=== PATIENT | female | born 1990 ===

== ENCOUNTER 2018-02-26 12:21 | Inpatient (IN) | payer MEDICAID, OTHER ==
[2018-02-26] MEDS ORDERED: CLINDAMYCIN 600 MG/DEXTROSE 50 ML IV ONE (12:47)
[2018-02-26] MEDS ORDERED: CIPROFLOXACIN 400 MG/DEXTROSE 200 ML IV ONE (12:48)
[2018-02-26 13:10] LABS: PLATELET COUNT 289 10^3/uL (150-400)
--- NOTE | 2018-02-26 14:44 | EDPHY ---
H & P Stated Complaint: cat bite to right hand 630pm 4/5 at work , cat w vaccines Time Seen by Provider: 02/26/18 12:34 HPI/ROS: CHIEF COMPLAINT: Cat bite History by patient HISTORY OF PRESENT ILLNESS: 27-year-old otherwise healthy right-hand dominant woman presents complaining of cat bite to her right hand. Patient's states she was bit by her brother's CT last night and this morning she was at work and noticed she was having a hard time doing things because it was so painful and swollen. She says the pain goes up into her forearm to almost the area of her elbow. She denies any fever but she has been feeling generally tired and headachy today. There has been no pus draining from the wound. Her last tetanus shot is unknown. She denies any other injuries. REVIEW OF SYSTEMS: As in HPI, and all other systems reviewed and are negative Source: Patient - Personal History LMP (Females 10-55): IUD In Place Current Tetanus/Diphtheria Vaccine: Unsure Current Tetanus Diphtheria and Acellular Pertussis (TDAP): Unsure - Medical/Surgical History Hx Asthma: Yes Hx Chronic Respiratory Disease: No Hx Diabetes: No Hx Cardiac Disease: No Hx Renal Disease: Yes Hx Cirrhosis: No Hx Alcoholism: No Hx HIV/AIDS: No Hx Splenectomy or Spleen Trauma: No Other PMH: Asthma. had kidney issue few years pt 2018. migraines - Social History Smoking Status: Never smoked - Physical Exam Exam: General Appearance: Alert and no distress. Nontoxic Head: Normocephalic, atraumatic Eyes: Pupils equal and round no injection. Extraocular movements are intact. Musculoskeletal: Neck is supple and nontender. Extremities: Right hand positive bite smith on thenar eminence and dorsal surface of thumb and hand, multiple abrasions on right hand, for arm and left for arm. Positive redness and swelling of right thenar eminence with erythema extending up to 2 in proximal of the right wrist with warmth extending to the level of the proximal forearm with diffuse tenderness of the right forearm, radial pulses 2+ and equal to the left, distal motor and sensation are intact, distal cap refills less than 2 sec Skin: No rashes or lesions except as described above. Constitutional: Initial Vital Signs Temperature (C) 37.2 C 02/26/18 12:25 Heart Rate 84 02/26/18 12:25 Respiratory Rate 16 02/26/18 12:25 Blood Pressure 139/94 H 02/26/18 12:25 O2 Sat (%) 99 02/26/18 12:25 O2 Delivery Mode Room Air Allergies/Adverse Reactions: amoxicillin Allergy (Verified 02/26/18 12:35) Penicillins Allergy (Verified 02/26/18 12:35) Home Medications: Medication Instructions Recorded Albuterol 02/26/18 Iud 02/26/18 Medical Decision Making ED Course/Re-evaluation: 27-year-old woman presents with the 24 hr old cat bite with obvious hand infection and proximally migrating cellulitis. Patient is penicillin allergic and states that she had an anaphylactic reaction with throat closing and shock to penicillin. She was therefore started on IV ciprofloxacin and IV clindamycin. CBC ESR and CRP were within normal limits and there is no evidence of systemic sepsis, however given the spreading cellulitis from a cat bite it seemed prudent to admit the patient for 24 hr of IV antibiotics. The patient will not be able to travel by airplane to [facility] as previously planned because of the severity of her infection and the need for ongoing antibiotics and monitoring the infection. I did discuss the case with the hand specialist on-call, Dr. Khan. He will consult on the patient. I discussed the case with the hospitalist. - Data Points Laboratory Results: Laboratory Results 02/26/18 13:00 02/26/18 02/26/18 13:00 13:00 WBC 6.45 10^3/uL 10^3/uL (3.80-9.50) RBC 5.16 10^6/uL 10^6/uL (4.18-5.33) Hgb 15.7 g/dL g/dL (12.6-16.3) Hct 44.9 % % (38.0-47.0) MCV 87.0 fL fL (81.5-99.8) MCH 30.4 pg pg (27.9-34.1) MCHC 35.0 g/dL g/dL (32.4-36.7) RDW 11.9 % % (11.5-15.2) Plt Count 289 10^3/uL 10^3/uL (150-400) MPV 9.5 fL fL (8.7-11.7) Neut % (Auto) 72.7 % % (39.3-74.2) Lymph % (Auto) 19.1 % % (15.0-45.0) Tift % (Auto) 6.2 % % (4.5-13.0) Eos % (Auto) 1.4 % % (0.6-7.6) Baso % (Auto) 0.3 % % (0.3-1.7) Nucleat RBC Rel Count 0.0 % % (0.0-0.2) Absolute Neuts (auto) 4.69 10^3/uL 10^3/uL (1.70-6.50) Absolute Lymphs (auto) 1.23 10^3/uL 10^3/uL (1.00-3.00) Absolute Monos (auto) 0.40 10^3/uL 10^3/uL (0.30-0.80) Absolute Eos (auto) 0.09 10^3/uL 10^3/uL (0.03-0.40) Absolute Basos (auto) 0.02 10^3/uL 10^3/uL (0.02-0.10) Absolute Nucleated RBC 0.00 10^3/uL 10^3/uL (0-0.01) Immature Gran % 0.3 % % (0.0-1.1) Immature Gran # 0.02 10^3/uL 10^3/uL (0.00-0.10) ESR 7 MM/HR MM/HR (0-20) C-Reactive Protein < 5.0 mg/L mg/L (<10.0) Medications Given: Discontinued Medications Ciprofloxacin/Dextrose (Cipro 400 Mg (Premix)) 200 mls @ 200 mls/hr IV EDNOW ONE PRN Reason: Protocol Stop: 02/26/18 13:47 Last Admin: 02/26/18 13:24 Dose: 200 mls Clindamycin Phosphate/Dextrose (Cleocin 600 Mg (Premix)) 50 mls @ 100 mls/hr IV EDNOW ONE PRN Reason: Protocol Stop: 02/26/18 13:16 Last Admin: 02/26/18 14:35 Dose: 50 mls Departure - Departure Disposition: [facility] Clinical Impression: Cat bite of right hand with infection Qualifiers: Encounter type: initial encounter Qualified Code(s): S61.451A - Open bite of right hand, initial encounter Cellulitis Qualifiers: Site of cellulitis: extremity Site of cellulitis of extremity: upper extremity Laterality: right Qualified Code(s): L03.113 - Cellulitis of right upper limb Condition: Good
[2018-02-26] MEDS ORDERED: TDAP ADULT 0.5 ML INJ (BOOSTRIX) IM ONE (16:09)
[2018-02-26] MEDS ORDERED: IBUPROFEN 600 MG TAB PO ONE (16:18)
[2018-02-26] MEDS ORDERED: ONDANSETRON DISINTEGRATING 4 MG TAB PO PRN (17:20)
[2018-02-26] MEDS ORDERED: ACETAMINOPHEN 325 MG TAB PO PRN (17:20)
[2018-02-26] MEDS ORDERED: ONDANSETRON 4 MG/2 ML VIAL IVP PRN (17:20)
[2018-02-26] MEDS ORDERED: IBUPROFEN 200 MG TAB PO PRN (17:20)
--- NOTE | 2018-02-26 19:03 | GHP ---
[f rep st] HISTORY AND PHYSICAL DATE OF ADMISSION: 02/26/2018 CHIEF COMPLAINT: Hand pain. HISTORY OF PRESENT ILLNESS: This is a 27-year-old female who presents approximately 24 hours after h aving been scratched and bitten by a cat on her right hand. The patient reports discomfort and a lot of bleeding at the time of the initial injury. She then awoke this morning in normal state of healt h, had some sensation of subjective fevers and chills, presented to work where she noted increasing d iscomfort of the right hand that seemed to be climbing up into the wrist and into the forearm of that arm. The patient denies any purulent drainage from the wound. She has puncture wounds from the jeffy th of a cat in the palm of her hand and scratches on the dorsum. Does note persistent erythema and i ncreasing swelling at the pad of her right thumb. The patient denied any nausea or vomiting, was alex erating normal intake. Denies any diarrhea. Denies dysuria, hematuria, vomiting, shortness of breat h, chest pain, headache, vision changes. Does describe progressing discomfort and soreness of the ri ght arm, increasing from the pad of her thumb all the way to her forearm. PAST MEDICAL HISTORY: Migraine headaches. SOCIAL HISTORY: Negative for tobacco. Occasional alcohol. No illicit drugs or marijuana. FAMILY HISTORY: Positive for diabetes. REVIEW OF SYSTEMS: A 10-point review of systems is negative with the exception of that reported in t he HPI. PHYSICAL EXAMINATION: VITAL SIGNS: Blood pressure 110/96, heart rate 83, respiratory rate 16, 97% o n room air, 37.3. GENERAL: This is a pleasant, healthy-appearing young female in no acute distress. HEENT: Notable for moist mucous membranes. Eye exam is negative for any icterus. CARDIAC: Regul ar rate and rhythm. PULMONARY: Clear to auscultation bilaterally. GASTROINTESTINAL: Positive collin l sounds. ABDOMEN: Soft and nontender. MUSCULOSKELETAL: Negative for any lower extremity edema. SKIN: The patient has erythema at the base of her right thumb and some erythema extending to the zi sum along the thumb. There is no notable erythema extending up into the wrist or forearm. There is notable swelling of the thenar pad on the right. The patient has marked discomfort with range of mot ion of her thumb as well as dorsal flexion of her right hand. DATA: White count 6.4, hematocrit 44.9, platelets 289. C-reactive protein is less than 5. ASSESSMENT AND PLAN: This is a 27-year-old female presenting after a cat bite with progressing right hand pain. 1. Acute right hand cellulitis/tenosynovitis secondary to cat bite. Patient received IV clindamycin and ciprofloxacin at the [facility]. Hand Surgery has been consulted. We will discuss with them the need for any hand imaging at this time. Will order per their preference. We will continue intravenous doxycycline and clindamycin. Blood cultures have been obtained and will be followed closely. Will await Hand Surgery's recommendations for imaging and/or incision and drainag e. Patient will be kept nil per os until their evaluation. Prophylaxis: Will hold until a surgical plan is clear. Will use ibuprofen for pain. Check basic labs in the morning. 2. Migraine headaches. The patient is actively without complaint. We will continue home medication s if necessary. DISPOSITION: I expect greater than 2 midnights. The patient will need hand surgical evaluation and IV antibiotics for appropriate control of a concerning cat bite infection. I have discussed the case with the [facility] provider. Patient will be triaged to the medical-surgical floor f or care. /[id number]/MODL
--- NOTE | 2018-02-26 19:37 | PDMN ---
Medical Necessity Medical necessity: C/M review: Patient meets INPT criteria under [facility] [place] [facility] Cellulitis: Acute right hand cellulitis / tenosynovitis secondary to cat bite, subjective fevers, chills, increasing pain climbing into right siddiqi wrist and forearm, persistent erythema and increasing swelling of pad of right thumb, requiring Hand Surgery consult, ongoing IV Clindamycin Q 8 hrs., IV Doxycycline Q 12 hrs. comorbid history of 02/25/2018 cat bite and scratch on right hand, puncture wounds from the teeth of a cat in palm of right hand and scratches on dorsum of right hand present on admission, migraine headaches. MD anticipates > 2 MN LOS for ongoing med nec for eval and TX of above.
--- NOTE | 2018-02-26 19:45 | SOAPPROG ---
SOAP Progress Note Assessment/Plan: Assessment: Plan: Subjective: pain after cat bite puncture smith neg fluctuance neg kanavel signs cont abx will re-eval tomorrow Objective: Vital Signs Temp Pulse Resp BP Pulse Ox 37.3 C 83 16 110/96 H 97 02/26/18 17:30 02/26/18 17:30 02/26/18 17:30 02/26/18 17:30 02/26/18 17:30 ICD10 Worksheet Patient Problems: Problems Problem Status Onset Cat bite of right hand with infection Acute Cellulitis Acute
--- NOTE | 2018-02-26 19:53 | GCON ---
[f rep st] CONSULTATION INPATIENT CONSULTATION DATE OF CONSULTATION: 02/26/2018 CURRENT COMPLAINT: Right hand pain. HISTORY OF PRESENT ILLNESS: The patient is a 27-year-old female, who yesterday was handling a family cat when it bit her in the hand. She developed increasing pain over the day to the point she had di fficulty using her thumb, secondary to the pain she experienced. She was seen in the emergency room and noted to had some erythematous streaking into the forearm. She was admitted for IV antibiotics. I was asked to see the patient for further evaluation to determine whether she needed surgery. PHYSICAL EXAMINATION: EXTREMITIES: The patient is grossly neurologically intact to the radial, medi an, and ulnar nerves, although she does describe tingling into the thumb, index, and middle fingers. She has no pain to passive stretch or motion through the lesser digits, but she does have some pain with passive motion of the thenar musculature, but not to the FPL or EPL associated with the thumb. She does not have any fullness, fluctuance, or erythema into the volar dorsal forearm. ASSESSMENT AND PLAN: The patient is status post right hand cat bite. She is to continue on her IV a ntibiotics. She is welcome to the eat for the remainder of today. She should be n.p.o. after midnig ht tonight in order to reassess her tomorrow to see how she is doing, and determine whether she needs any surgical treatment. I will continue to follow her while she is here in the hospital. /[id number]/MODL
[2018-02-26] MEDS: DOXYCYCLINE INJ 100 MG in NS 250 ML IV SCH (20:13)
[2018-02-26] MEDS: CLINDAMYCIN 600 MG/DEXTROSE 50 ML IV SCH (22:27)
[2018-02-27] MEDS: CLINDAMYCIN 600 MG/DEXTROSE 50 ML IV SCH ×2 (05:20→13:40)
[2018-02-27 05:57] LABS: PLATELET COUNT 249 10^3/uL (150-400)
[2018-02-27] MEDS ORDERED: RIZATRIPTAN BENZOATE 10 MG PO PRN ×2 (08:38→09:02)
[2018-02-27] MEDS ORDERED: NON-FORMULARY NEW DRUG (Levonorgestrel [Mirena] 1 EACH) IY SCH (08:45)
[2018-02-27] MEDS: DOXYCYCLINE INJ 100 MG in NS 250 ML IV SCH (08:54)
[2018-02-27] MEDS ORDERED: ENOXAPARIN 40 MG/0.4 ML SYR SC SCH (09:00)
[2018-02-27] MEDS ORDERED: LEVONORGESTREL IY SCH (09:15)
[2018-02-27 12:18] VITALS: BP 132/87
--- NOTE | 2018-02-27 13:21 | SOAPPROG ---
SOAP Progress Note Assessment/Plan: Assessment: Plan: Subjective: states she feels better NT along FPL tender at thenar switch to oral abx FU in office Objective: Vital Signs Temp Pulse Resp BP Pulse Ox 36.7 C 178 H 15 132/87 H 94 02/27/18 12:00 02/27/18 12:00 02/27/18 12:00 02/27/18 12:00 02/27/18 12:00 Laboratory Results 02/27/18 05:12 02/27/18 05:12 ICD10 Worksheet Patient Problems: Problems Problem Status Onset Cat bite of right hand with infection Acute Cellulitis Acute
--- NOTE | 2018-02-27 16:07 | GDS ---
[f rep st] DISCHARGE SUMMARY DISCHARGE DIAGNOSES: Cat bite cellulitis. CONSULTATIONS: Dr. Khan of Orthopedics. PHYSICAL EXAMINATION: Generally the patient is alert. Vital signs are afebrile at 36.7, pulse is 66 , respiratory rate is 15, blood pressure is 132/87, and she is saturating 94% on room air. I have se en and evaluated the patient on the day of discharge. HOSPITAL COURSE: The patient is a 27-year-old female who presented to the emergency room with compla ints of right hand pain. She was evaluated and diagnosed with cellulitis secondary to cat bite. Dur ing this hospitalization, she was started on IV doxycycline as well as clindamycin secondary to a pen icillin allergy. She has responded well. She did receive a consultation from Dr. Khan of Orthopedic s. I have discussed the patient's disposition with Dr. Khan. He is in agreement with her transition ing to oral antibiotics and being discharged home from the hospital. He will see her in the outpatie nt setting for further followup. At the time of disposition, I have provided her prescriptions for clindamycin 450 mg p.o. t.i.d., as well as doxycycline 100 mg p.o. b.i.d. I have dispensed 10 days' worth. The patient may require fur ther oral antibiotic therapy in the outpatient setting, but will defer to Dr. Khan in followup office visitation. There are no pending studies. TIME SPENT: I spent greater than 35 minutes in the care, coordination, and management of this patien t's disposition. /[id number]/MODL
== END 2018-02-27 14:59 | disposition home or self-care (01) | DRG 383 ==
LOC: CED 12:21 → CEDHOLD 15:15 → F3N 17:15 → OBSVTOIN 17:23
PROVIDERS: ADMIT Hospitalist; ATTEND Hospitalist
DX: L03.113 Cellulitis of right upper limb (principal); J45.909 Unspecified asthma, uncomplicated; S61.451A Open bite of right hand, initial encounter; W55.01XA Bitten by cat, initial encounter; Z88.0 Allergy status to penicillin; Y92.019 Unspecified place in single-family (private) house as the place of occurrence of the external cause
CPT/HCPCS: 85652-PO; 96365; J0744